=== PATIENT | male | born 1945 | race Caucasian/White ===

== ENCOUNTER 2017-11-18 06:55 | Day surgery (SDC) | payer BC ==
[~2017-11-18] VITALS: Ht 172.7 cm; Wt 72.6 kg
[~2017-11-18 06:55] MED LIST: KLS OMEPRAZ20 MG PO; LIPITOR10 M1 PO; MEDDOSEPAK PO; OMEGA 31000 MG PO; PROBIOTIC1 TAB PO; SYNTHROID25 MCG PO; ZITHROMAX500 MG PO
[2017-11-18 08:56] VITALS: BP 135/80
== END 2017-11-18 09:04 | disposition home or self-care (01) | DRG 392 ==
LOC: ENDO 06:55 → ORM 08:45 → ENDO 09:04
PROVIDERS: ATTEND Surgery
PROC: 0DJ08ZZ Inspection of Upper Intestinal Tract, Via Natural or Artificial Opening Endoscopic (ICD-10-PCS; principal; 2017-11-18)
DX: K44.9 Diaphragmatic hernia without obstruction or gangrene (principal); K21.9 Gastro-esophageal reflux disease without esophagitis